=== PATIENT | female | born 1975 | race Caucasian/White ===

== ENCOUNTER 2025-08-13 10:13 | Emergency (ER) | payer OTHER, SELFPAY ==
[2025-08-13 10:23] VITALS: BP 145/75; PULSE 89; RESP 18; TEMP 36.4; O2SAT 100
[2025-08-13 10:39] LABS: EDCOVIDSCREEN Negative (Negative); EDINFLUASCREEN Negative (Negative); EDINFLUBSCREEN Negative (Negative); EDSTREPNEGPOS1 Negative (Negative)
--- OUTSIDE RECORDS SUMMARY | 2025-08-13 10:45 | XMS_ITS | Clinical Summary ---
Author Organization [facility] Address [address] [place] [address] Care Team Providers Care Supervisor General Name Role Phone Vanda Lebron MD Primary Care Provider [phone] Vanda Lebron MD Unavailable [phone] Source Comments [facility],non-owned Affiliates and Associated Physician Practices is amultiple site organization consisting of ambulatory clinics and hospital sitesin [place], [place], [place] and [place]. This disclosure is being madepursuant to the Care Everywhere program and may not contain all information available regarding this patient. Last updated 18.[facility] Allergies Active Allergy Reactions Criticality Noted Date Comments Augmentin Urticaria Medium 12/19/2023 Clarithromycin Itching,Rash,Urticaria Medium 0 Vancomycin Itching,Rash,Shortne ss of Breath,Wheezing High 10/12/2024 Medications * Be aware that medications may not be up to date on this document. Alwaysverify current medications with the patient. valsartan (Diovan) 40 MG tabletIndication s:Primary hypertension Take 1 (one) tablet by mouth once daily 90 tablet 1 025 Active promethazine 12.5 mg in 0.25 ml gelIndications:N ausea and vomiting, unspecified vomiting type Apply 12.5 (twelve and one-half) mg to affected area as needed for Nausea/Vomiting 5 mL 025 Active furosemide (Lasix) 80 MG tabletIndication s:Chronic diastolic congestive heart failure (HCC) Take 1 (one) tablet by mouth once daily 90 tablet 1 025 Active esomeprazole (NexIUM) 40 MG capsuleIndicatio ns:Gastroesophag eal reflux disease, unspecified whether esophagitis present Take 1 (one) capsule by mouth daily before breakfast 90 capsule 1 025 Active empagliflozin (Jardiance) 25 MG tabletIndication s:DM type 2 with diabetic mixed hyperlipidemia (HCC) Take 1 (one) tablet by mouth once daily 30 tablet 5 025 Active eletriptan (Relpax) 40 MG tabletIndication s:Chronic migraine with aura without status migrainosus, not intractable Take 1 (one) tablet by mouth once as needed for Migraine No more than two doses may be taken in 24 hours. 9 tablet 5 025 Active Insulin Pen Needle (Embecta AutoShield Duo) 30G X 5 MM MISCIndications: DM type 2 with diabetic mixed hyperlipidemia (HCC) Use 1 syringe 4 times daily - before meals & nightly 200 Each 1 025 Active ondansetron, disintegrating, (Zofran ODT) 4 MG tablet Take 1 (one) tablet by mouth every 6 hours as needed for Nausea/Vomiting Allow tablet to dissolve on the tongue 12 tablet 025 Active Additional Information Patient not taking.Reported on 05/06/2025 buPROPion XL 24hr (Wellbutrin-XL) 300 MG tabletIndication s:Anxiety and depression Take 1 (one) tablet by mouth every morning Active insulin degludec (Tresiba FlexTouch) 200 UNIT/ML penIndications:D M type 2 with diabetic mixed hyperlipidemia (HCC) Inject 100 (one hundred) Units subcutaneously once daily 15 mL 4 025 Active ubrogepant (Ubrelvy) 50 MG tabletIndication s:Migraine without aura and without status migrainosus, not intractable,Rohit plegic migraine without status migrainosus, not intractable,Ocul ar migraine Take 1 (one) tablet by mouth daily as needed - may repeat one time for Migraine Maximum daily dose: 200mg/24 hours 10 tablet 5 025 Active Continuous Glucose Sensor (FreeStyle Adrianna 3 Plus Sensor) MISCIndications: DM type 2 with diabetic mixed hyperlipidemia (HCC) Use 1 Each every 15 days 2 Each 5 025 Active ezetimibe (Zetia) 10 MG tabletIndication s:Mixed hyperlipidemia TAKE 1 TABLET BY MOUTH EVERY DAY 90 tablet 025 Active tirzepatide (Mounjaro) 5 MG/0.5ML injectionIndicat ions:DM type 2 with diabetic mixed hyperlipidemia (HCC) INJECT 5 (FIVE) MG SUBCUTANEOUSLY EVERY 7 DAYS (ONCE A WEEK) 2 mL 3 Active Continuous Glucose Marketing Intern (FreeStyle Adrianna 3 [place]) DEVIIndications: DM type 2 with diabetic mixed hyperlipidemia (HCC) USE DIRECTED 3 Each 025 2024 Discontinued(L ist Clean-Up) tirzepatide (Mounjaro) 5 MG/0.5ML injectionIndicat ions:DM type 2 with diabetic mixed hyperlipidemia (HCC) Inject 5 (five) mg subcutaneously every 7 days (once a week) 2 mL 1 025 2024 Discontinued Active Problems Problem Noted Date Diagnosed Date Persistent headaches 03/19/[address] of brain 03/19/2025 Chronic post-traumatic stress disorder (PTSD) Anxiety 01/24/2025 Anxiety and depression 01/24/2025 Diabetes type 2, controlled 01/24/2025 Hypertension associated with diabetes 10/15/2024 Annual physical exam 10/15/2024 Chronic diastolic congestive heart failure 10/15 DM type 2 with diabetic mixed hyperlipidemia AMANDA (generalized anxiety disorder) 10/15/2024 Gastroesophageal reflux disease without esophagi tis 10/15/2024 Intractable migraine with aura with status migra inosus 10/15/2024 Moderate episode of recurrent major depressive d isorder 10/15/2024 Nausea 10/15/2024 Presence of heart assist device 10/15/2024 Overview (01/25/2025): Patient has Watchman implanted Obesity, diabetes, and hypertension syndrome Atrial fibrillation 01/23/2024 Resolved Problems Problem Noted Date Diagnosed Date Resolved Date History of systemic lupus erythematosus 01/24/2025 03/03/2025 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 10/15/2024 05/01/2025 Encounters Date Type Department Care Team Description 08/06/2025 11:15 AM [employer] Video Visit [address] [phone] Angelina Davidson APRN-CNP Referral of patient without examination or treatment 07/28/2025 Refill [facility] - Endocrinology [address] [place] [address] Venessa Lundberg APRN-CNP Refill Request 07/10/2025 Refill [facility] [place] [place] [address] Venessa Lundberg APRN-CNP Refill Request 06/24/2025 Orders Only [facility] - Endocrinology [facility] [place] [address] Laurence Reddy, RN DM type 2 with diabetic mixed hyperlipidemia (HCC) 06/24/2025 Telephone [facility] - Endocrinology [facility] [place] [address] Laurence Reddy, plant tech Issue 06/05/2025 Travel 05/17/2025 Telephone [facility] - Neurology [address] [place] [phone] Reno Young APRN-CNP Medication Prior Auth Request (Ubrelvy) 05/16/2025 Orders Only [facility] Neurology [address] [place] [phone] Reno Young APRN-CNP Migraine without aura and without status migrainosus, not intractable ; Hemiplegic migraine without status migrainosus, not intractable; Ocular migraine from Last 3 Months Immunizations Immunization Administration Dates Next Due TDAP (7yrs+) 01/27/2021 Family History Medical History Relation Name Comments Atrial Fibrillation Father Cancer - Lung Father Congenital Heart defect Father Hypertension Father CVA Maternal Grandmother COPD - Chronic Obstructive Pulmonary Disease Mother Cancer - Cervical Mother Cancer - Lung Mother Congenital Heart defect Mother Cancer - Breast Paternal Aunt Cancer - Colon Paternal Grandfather Relation Name Status Comments Father Maternal Grandmother Mother Alive Other Cousin has endo crine cancer found her appendix. Paternal Aunt Paternal Grandfather Social History Tobacco Use Types Packs/Day Years Used Date Smoking Tobacco: Never Smokeless Tobacco: Never Tobacco Cessation:Counseling Given: Not Answered Alcohol Use Standard Drinks/Week Comments Not Currently 0 (1 standard drink = 0.6 oz pur e alcohol) PHQ-2 Answer Date Recorded Patient Health Questionnaire-2 Score 2 05/07/2025 Comments No Sex and Gender Information Value Date Recorded Sex Assigned at Not on file Legal Sex Female 3:41 PM CDT Gender Identity Not on file Sexual Orientation Not on file Last Filed Vital Signs Vital Sign Reading Time Taken Comments Blood Pressure 123/84 05/06/2025 1:09 PM CDT Pulse 102 05/06/2025 1:09 PM CDT Temperature 36.2 C (97.1 F) 03/14/2025 2:15 PM CDT Respiratory Rate 18 01/29/2025 4:33 PM CDT Oxygen Saturation 98% 05/06/2025 1:09 PM CDT Inhaled Oxygen Concentration - - Weight 112 kg (247 lb) 05/06/2025 1:09 PM CDT Height 165.1 cm (5' 5) 05/06/2025 1:09 PM CDT Body Mass Index 41.1 05/06/2025 1:09 PM CDT Plan of Treatment Upcoming Encounters Date Type Department Care Team (Late st Contact Info) Description 09/05/2025 2:30 PM [employer] Office Visit [facility] - Family Medicine [address] [facility] [address] [place] [phone] Vanda Lebron MD [address] [facility] [address] [place] [address] 09/10/2025 2:40 PM [employer] Office Visit [facility] - Endocrinology [address] [place] [address] Venessa Lundberg, BISHOP-TRACTOR EXPERT [address] [facility] [place] [address] 09/23/2025 2:30 PM [employer] Office Visit [facility] - Family Medicine [address] [facility] [address] [place] [address] Vanda Lebron MD [address] [place] [phone] 10/31/2025 2:00 PM CDT Ancillary Procedure [facility] - Echosonography [address] [phone] 10/31/2025 3:00 PM CDT Office Visit [facility] - Cardiology [phone] [place] [phone] Luciano Sanchez MD [address] [place] [address] 11/04/2025 4:00 PM CDT Video Visit [facility] - Neurology [address] [facility] [place] [phone] Reno Young, TECHNOLOGY OFFICER-TRACTOR EXPERT [address] [place] [phone] Health Maintenance Due Date Last Done Comments COLOGUARD (AGES 45-75) - COLON CA SCREENING [address] COLONOGRAPHY - COLON CA SCREENING 1976 FIT - COLON CA SCREENING 1976 FLEX SIG - COLON CA SCREENING 1976 MAMMOGRAM 1976 HIV SCREENING 1991 HEPATITIS C SCREENING 05/11/1994 HEPATITIS B VACCINE (1 of 3 - 19+ 3-dose series) 1995 PAP SMEAR 1997 DIABETES - URINE PROTEIN SCREENING 08/22/2024 DIABETES-FOOT EXAM WITH MONOFILAMENT 01/24/2025 COVID-19 VACCINE ( - 2024-2 6 season) 2025 INFLUENZA VACCINE (#1) 2025 DIABETES-HGB A1C 06/14/2025 03/14/2025 DIABETES-SERUM CREATININE 01/29/2026 01/29/2025 ZOSTER VACCINE (1 of 2) 2026 DIABETES RETINOPATHY SCREENING 01/18/2027 01/18/2025 (Done Outside Per Patient) DTAP/TDAP/TD VACCINES (2 - T d or Tdap) 01/27/2031 01/27/2021 COLONOSCOPY - COLON CA SCREENING 01/28/2032 01/27/2022 (Done Outside Per Patient) Colorectal Cancer Screening 01/28/2032 DEPRESSION SCREENING Completed 01/25/2025 HIB VACCINE Aged Out No longer eligi ble based on patient's age to complete this topic HPV VACCINE Aged Out No longer eligi ble based on patient's age to complete this topic MENINGOCOCCAL (Group B) VACCINE SHARED DECISION-MAKING Aged Out No longer eligible based on patient's age to complete this topic MENINGOCOCCAL GROUPS A/C/Y/W VACCINE Aged Out No longer eligible based on patient's age to complete this topic Procedures Procedure Name Priority Date/Time Associated Diagnosis Comments HEMOGLOBIN A1C - POINT OF CARE (AMB) U Routine 03/14/2025 2:25 PM CDT DM type 2 with diabetic mixed hyperlipidemia (HCC) COMPREHENSIVE METABOLIC PANEL STAT 01/29/2025 3:59 PM CDT from Last 3 Months or Most Recently Relevant to Health Maintenance Results * HEMOGLOBIN A1C - POINT OF CARE (AMB) [facility] (03/14/2025 2:25 PM CDT) Pathologist [facility] Hemoglobin A1c POCT 9.0 % BLOOD SPECIMEN / Unknown 03/14/2025 2:25 PM CDT Venessa Lundberg APRN-TRACTOR EXPERT LAB - POINT OF CARE OR DERABLES Final Result * (ABNORMAL) COMPREHENSIVE METABOLIC PANEL (01/29/2025 3:59 PM CDT) Pathologist [facility] BUN 11 7 - 26 mg/dL 01/29/2025 5:00 PM CDT [facility] Creatinine 0.69 0.56 - 0.96 mg/dL 01/29/2025 5:00 PM [facility] Sodium 136 136 - 145 mmol/L 01/29/2025 5:00 PM [facility] Potassium 4.4 3.5 - 4.5 mmol/L 01/29/2025 5:00 PM [facility] Chloride 103 98 - 107 mmol/L 01/29/2025 5:00 PM [facility] CO2 25 22 - 29 mmol/L 01/29/2025 5:00 PM [facility] Glucose 331(H) 70 - 99 mg/dL 01/29/2025 5:00 PM [facility] Calcium 9.7 8.4 - 10.2 mg/dL 01/29/2025 5:00 PM [facility] Protein Total 7.3 6.0 - 8.3 g/dL 01/29/2025 5:00 PM [facility] Albumin 4.1 3.4 - 5.0 g/dL 01/29/2025 5:00 PM [facility] Bilirubin Total 0.6 0.2 - 1.2 mg/dL 01/29/2025 5:00 PM [facility] Alkaline Phosphatase 111 40 - 150 U/L 01/29/2025 5:00 PM [facility] ALT 20 5 - 55 U/L 01/29/2025 5:00 PM [facility] AST 22 5 - 34 U/L 01/29/2025 5:00 PM [facility] Anion Gap 8 6 - 16 01/29/2025 5:00 PM [facility] BUN/Creatinine Ratio 16 7 - 23 01/29/2025 5:00 PM [facility] Osmolality Calculated 294 275 - 295 mOsm/kg 01/29/2025 5:00 PM [facility] Albumin/Globulin Ratio 1.3 1.1 - 2.3 01/29/2025 5:00 PM [facility] eGFR by CKD-EPI >90 >=90 mL/min/1.7 3 m2 01/29/2025 5:00 PM [facility] Blood BLOOD SPECIMEN / Unknown Venipuncture / Unknown 01/29/2025 3:59 PM CDT 01/29/2025 4:02 PM CDT Narrative [facility] - 01/29/2025 5:00 PM CDT Estimated Glomerular Filtration Rate (eGFR) calculated using the CKD-EPI Creatinine Equation (2020), per the National Kidney Foundation and [place] Society of Nephrology recommendations. us Montse Snell PA-C LAB - CHEMISTRY ORDERABLES Final Result Performing Organization Address City/State/[facility] Co de Phone Number [facility] [address] [place] [address], [facility] [phone] from Last 3 Months or Most Recently Relevant to Health Maintenance Insurance [facility] Member Subscriber Plan / Payer (Ef fective 2024-Present) Name:Geri Aldridge Relation to Subscriber:Spouse Name:Mandeep Aldridge Date of :1975 (Home) Address: [address] [address] Payer ID:[id number] (NAIC) Type:[facility] Address: [address] [address] [place] [address] AET Care Teams Supervisor General Relationship Specialty Start Date End Date Vanda Lebron MD [address] [address] PCP - General Family Medicine 01/25/25 Vanda Lebron MD [address] [address] PCP - Attributed-[facility] Commercial 01/20/25
--- OUTSIDE RECORDS SUMMARY | 2025-08-13 10:45 | XMS_ITS | Encounter Summary ---
Author Organization [facility] Address [address] [facility] [place] [address] Care Team Providers Care Endoscopy Support Specialist Name Role Phone Vanda Lebron MD Primary Care Provider + [phone] Vanad Lebron MD Unavailable [phone] Reason for Visit * Reason Comments Refill Request Encounter Details Date Type Department Care Team (Late Contact Info) Description 03/05/2025 Refill [facility] [employer] [address] [phone] Sharee Orellana, BAG MAKING MACHINE OPERATOR-BOARD CERTIFIED ARTS THERAPIST [address] [place] [address] Refill Request Social History Tobacco Use Types Packs/Day Years Used Date Smoking Tobacco: Never Smokeless Tobacco: Never Alcohol Use Standard Drinks/Week Comments Not Currently 0 (1 standard drink = 0.6 oz pur e alcohol) PHQ-2 Answer Date Recorded Patient Health Questionnaire-2 Score 0 02/27/2025 Comments No Sex and Gender Information Value Date Recorded Sex Assigned at Not on file Legal Sex Female 3:41 PM CDT Gender Identity Not on file Sexual Orientation Not on file documented as of this encounter Plan of Treatment Upcoming Encounters Date Type Department Care Team (Late Contact Info) Description 09/05/2025 2:30 PM HOT KETTLE T[employer]ER Office Visit [facility] Medical [facility] - Family Medicine [address] [facility] [address] [place] [address] Vanda Lebron MD [address] [facility] [address] [place] [address] 09/10/2025 2:40 PM [employer] [facility] [address] [place] [phone] Venessa Lundberg, BAG MAKING MACHINE OPERATOR-BOARD CERTIFIED ARTS THERAPIST [address] [facility] [place] [phone] 09/23/2025 2:30 PM HOT KETTLE TENDER Office Visit [facility] - Family Medicine [address] [address] Vanda Lebron MD [address] [address] 10/31/2025 2:00 PM CDT Ancillary Procedure [facility] - Echosonography [address] [phone] 10/31/2025 3:00 PM CDT Office Visit [facility] - Cardiology [address] [address] Luciano Sanchez MD [address] [place] [address] 11/04/2025 4:00 PM CDT Video [facility] [address] [facility] [place] [phone] Reno Young, BAG MAKING MACHINE OPERATOR-BOARD CERTIFIED ARTS THERAPIST [address] [facility] [address] [place] [address] documented as of this encounter Visit Diagnoses Not on filedocumented in this encounter Care Teams Endoscopy Support Specialist Relationship Specialty Start Date End Date Vanda Lebron MD [address] [address] PCP - General Family Medicine 01/25/25 Vanda Lebron MD [address] [address] PCP - Attributed-[facility] Commercial 01/20/25 documented as of this encounter
--- NOTE | 2025-08-13 10:57 | ED_ITS ---
HPI - URI/Sore Throat General Chief Complaint: Upper Respiratory Infection Stated Complaint: Flu symptoms Time Seen by Provider: 08/13/25 10:40 Source: patient and RN notes reviewed Mode of arrival: ambulatory Limitations: no limitations History of Present Illness HPI Narrative: 50-year-old female presents Express Care complaining of upper respiratory symptoms that started yesterday. Patient reports cough, sore throat, body aches, chills,, and congestion. Patient denies any upper respiratory symptoms,, chest pain, difficulty breathing, shortness of breath, nausea, vomiting, diarrhea, fevers, or any other symptoms. Patient does have a history of diabetes and congestive heart failure. Related Data Home Medications ?Medication ?Instructions ?Recorded ?Confirmed ?Last Taken ?Type bupropion HCl 150 mg 24 hr tablet, mg PO 08/13/25 Unk nown History extended release eletriptan 40 mg tablet mg 08/13/25 Unknown History empagliflozin 25 mg tablet mg 08/13/25 Unknown Histor y (Jardiance) esomeprazole magnesium 40 mg mg 08/13/25 Unknown Hist ory capsule,delayed release furosemide 80 mg tablet mg 08/13/25 Unknown History insulin degludec 200 unit/mL (3 unit subcut 08/13/25 Unknown History mL) subcutaneous pen (Tresiba FlexTouch U-200 insulin) tirzepatide 5 mg/0.5 mL mg subcut 08/13/25 Unknown History subcutaneous pen injector (Mounjaro) ubrogepant 50 mg tablet (Ubrelvy) mg 08/13/25 Unknown History valsartan 40 mg tablet mg 08/13/25 Unknown History Allergies Allergy/AdvReac Type Severity Reaction Status Date / Time amoxicillin Allergy Intermediate Vomiting Verified 08/13/25 10:30 erythromycin base Allergy Intermediate Hives Verified 08/13/25 10:30 vancomycin Allergy Intermediate Redness of Verified 08/13/25 10:30 Skin Review of Systems Review of Systems: CONSTITUTIONAL: Denies fever, or sweats. Positive for body aches and chills EYES: Denies visual changes, redness, or discharge. ENT: Positive for congestion, sore throat. Negative for rhinorrhea or otalgia. CARDIOVASCULAR: Denies chest pain, palpitations, or edema. RESPIRATORY: Positive for cough. Negative for wheezing or dyspnea. GASTROINTESTINAL: Denies abdominal pain, nausea, vomiting, or diarrhea. GENITOURINARY: Denies dysuria or hematuria. SKIN: Denies rash or itching. MUSCULOSKELETAL: Denies back pain, joint pain, or myalgia. NEUROLOGIC: Denies headache, numbness, or weakness. PSYCHIATRIC: Denies anxiety or depression. All other systems reviewed are negative, except as documented in HPI. PMFSH Comments At the time of my signature, I reviewed and agree with the nursing past medical, surgical, social, and family history. There is no relevant family history pertinent to the patient complaint. Exam Narrative: GENERAL: This is a well-nourished, well-developed adult, in no apparent distress. They are non ill-appearing, nontoxic appearing. HEAD: normocephalic, atraumatic. EYES: Sclera clear/white. Conjunctiva normal. Vision is grossly intact. Extraocular movements intact EARS: External ears normal, auditory canals clear and without drainage, TMs normal without perforation. Hearing grossly intact. NOSE: External nose normal with no obvious nasal discharge, nasal turbinates erythematous, no rhinorrhea. THROAT: Mucous membranes moist, posterior pharynx erythematous. PND present. Uvula midline. NECK: Neck supple, non-tender without lymphadenopathy, masses or thyromegaly. CARDIOVASCULAR: Regular rate and rhythm without murmurs, gallops, or rubs. RESPIRATORY: Clear to auscultation. Breath sounds equal bilaterally. No wheezes, rales, or rhonchi. Respiratory rate normal, respiratory effort nonlabored, no respiratory distress SKIN: warm, Dry, intact with no suspicious lesions or rash, good texture and turgor. NEURO: awake, alert, and oriented to person, place and time. There were no obvious focal neurologic abnormalities. EXTREMITIES: No joint tenderness, effusion, or edema noted. BACK: Nontender without deformity. Course Course Level of Care: Express Care Visit Vital Signs Vital signs: Vital Signs Temperature 97.6 F 08/13/25 10:23 Pulse Rate 89 08/13/25 10:23 Respiratory Rate 18 08/13/25 10:23 Blood Pressure 145/75 H 08/13/25 10:23 Pulse Oximetry 100 08/13/25 10:23 Oxygen Delivery Room Air 08/13/25 10:23 Temperature 97.6 F 08/13/25 10:23 Pulse Rate 89 08/13/25 10:23 Respiratory Rate 18 08/13/25 10:23 Blood Pressure 145/75 H 08/13/25 10:23 Pulse Oximetry 100 08/13/25 10:23 Oxygen Delivery Room Air 08/13/25 10:23 [facility] Narrative Medical decision making narrative: Rapid COVID, flu, strep were negative. A throat culture is pending. Symptoms likely viral in etiology. Discussed physical exam findings. Advised supportive measures and signs/symptoms to go to the ER. Pt is appropriate for outpt treatment and f/u. Differential Diagnosis Differential Diagnosis: Differential diagnostic considerations for upper respiratory infection include upper respiratory infection, croup, otitis media, sinusitis, viral infection, bronchitis, influenza, pharyngitis, strep, uvulitis. Lab Data [facility] Lab Attestation statement: I personally reviewed the patient's lab results. Labs: Lab Results 08/13/25 Range/Units 10:37 POC Influenza A Ag Negative (Negative) POC Influenza B Ag Negative (Negative) POC SARS CoV-2 Ag Negative (Negative) POC Grp A Strep Screen Negative (Negative) Critical Care Time Critical Care Time Critical Care Time: No Discharge Plan Discharge Clinical Impression: Upper respiratory infection Qualifiers: URI type: unspecified viral URI Qualified Code(s): J06.9 - Acute upper respiratory infection, unspecified Patient Disposition: Home Condition: Stable Instructions: Antibiotic Form, Upper Respiratory Infection (ED) Additional Instructions: Your rapid COVID, flu, rapid strep swab was negative today at [facility]. You will be notified in a few days if the culture comes back positive for strep, and appropriate antibiotics will be called in for you at that time. Your symptoms are likely due to a viral illness, which is not treated with antibiotics. Viral symptoms can be present for up to 10-14 days. Take Tylenol as needed for fever or pain. Follow instructions on the bottle. Rest and stay hydrated. Follow up with your PCP in 3-5 days if symptoms are not improving. Go to the ER immediately if you developed chest pain, vomiting, weakness, uncontrollable fevers, difficulty breathing or swallowing, or any serious concerns. Patient Language: Citizen Of [place] Prescriptions: No Action furosemide 80 mg tablet esomeprazole magnesium 40 mg capsule,delayed release(DR/EC) valsartan 40 mg tablet eletriptan 40 mg tablet bupropion HCl 150 mg tablet extended release 24 hr PO insulin degludec [Tresiba FlexTouch U-200] 200 unit/mL (3 mL) insulin pen SUBCUT Jardiance 25 mg tablet Ubrelvy 50 mg tablet Mounjaro 5 mg/0.5 mL pen injector SUBCUT Follow-up/Referrals: Vi,Vanda Cortez MD [Primary Care Provider, Family Practice] Stand Alone Forms: Work/School Release IP Time of Disposition: 10:54
== END 2025-08-13 10:59 | disposition home or self-care (01) ==
PROVIDERS: PCP Family Medicine
DX: J06.9 Acute upper respiratory infection, unspecified (principal); Z20.822 Contact with and (suspected) exposure to COVID-19; E11.9 Type 2 diabetes mellitus without complications; Z79.4 Long term (current) use of insulin; Z79.84 Long term (current) use of oral hypoglycemic drugs; Z79.85 Long-term (current) use of injectable non-insulin antidiabetic drugs; I50.9 Heart failure, unspecified
CPT/HCPCS: 87081; 87426; 87804; 87880; 99203; G0463